=== PATIENT | male | born 1940 | race Caucasian/White ===

== ENCOUNTER 2018-04-08 14:36 | Emergency (ER) | payer OTHER ==
[~2018-04-08] VITALS: Ht 165.1 cm; Wt 68.0 kg
[2018-04-08] MEDS ORDERED: PLAVIX75 MG (14:42)
[2018-04-08] MEDS ORDERED: PROTONIX20 MG (14:42)
[2018-04-08] MEDS ORDERED: SYNTHROID50 MCG (14:43)
== END 2018-04-09 00:18 | disposition home or self-care (01) ==
LOC: ER 14:36
DX: R42 Dizziness and giddiness (principal); R55 Syncope and collapse

== ENCOUNTER 2024-04-01 14:04 | Emergency (ER) | payer OTHER ==
[~2024-04-01] VITALS: Ht 167.6 cm; Wt 79.4 kg
[~2024-04-01 14:04] MED LIST: PLAVIX75 MG; PROTONIX20 MG; SYNTHROID50 MCG
[2024-04-01] MEDS ORDERED: PIPERACILLIN/TAZOBACTAM SODIUM 3.375 GM VIAL IV SCH (14:43)
[2024-04-01 16:31] LABS: HEMATOCRIT 45.8 % (39.0-48.0); HEMOGLOBIN 15.7 g/dL (13-16.00); MEAN CELL VOLUME 88.9 fL (80.0-100.00); MEAN CORPUSCULAR HEMOGLOBIN 30.5 pg (27.00-32.0); MEAN CORPUSCULAR HGB CONC 34.3 g/dl (32.0-36.0); PLATELET COUNT 210 K/uL (150-450); RED BLOOD COUNT 5.15 M/uL (4.00-6.00); RED CELL DISTRIBUTION WIDTH 13.7 % (11.5-14.5)
[2024-04-01 16:59] LABS: INR 1.04; PARTIAL THROMBOPLASTIN TIME 24.4 SECONDS (22.0-34.0); PROTHROMBIN TIME 10.9 SECONDS (9.0-11.5)
[2024-04-01 17:05] LABS: ALBUMIN 3.6 gm/dL (3.4-5.0); BILIRUBIN TOTAL 0.7 mg/dL (0.3-1.2); CALCIUM 9.1 mg/dL (8.5-10.1); CREATININE SERUM 1.83 mg/dL (0.70-1.30); GFR 35.71; GLOBULINA 4.1 G/DL (2.4-3.5); POTASSIUM 4.32 mEq/L (3.5-5.1); TOTAL PROTEIN 7.7 gm/dL (6.4-8.2)
[2024-04-01 18:14] LABS: PH,URINE 6.5 (5.0-8.0); URINE APPEARANCE Clear; URINE BILIRRUBIN Negative (NEGATIVE); URINE BLOOD Negative; URINE COLOR Yellow; URINE GLUCOSE Negative (NEGATIVE); URINE LEUKOCYTE Negative; URINE NITRATE Negative; URINE PROTEIN 30 (NEGATIVE); URINE UROBILINOGEN 0.2 E.U./dl
[2024-04-01 18:18] LABS: URINE BACTERIA 13.8 uL (0.0-1933); URINE RBC 2.4 uL (0.0-20.8); URINE WBC 18.9 uL (0.0-23.2)
[2024-04-01] MEDS ORDERED: TETANUS & DIPHTHERIA TOX,ADULT 0.5 ML VIAL IM ONE (21:15)
== END 2024-04-01 21:16 | disposition home or self-care (01) ==
LOC: ER 14:04
PROVIDERS: General Practice
DX: S09.8XXA Other specified injuries of head, initial encounter (principal); S19.80XA Other specified injuries of unspecified part of neck, initial encounter; W18.39XA Other fall on same level, initial encounter; I10 Essential (primary) hypertension; G20.C Parkinsonism, unspecified; Y93.89 Activity, other specified; Y92.012 Bathroom of single-family (private) house as the place of occurrence of the external cause; Q84.3 Anonychia; Z98.61 Coronary angioplasty status
CPT/HCPCS: 36415; 70450; 71046; 72170; 72192; 90471; 90714; 93005; 99284; J1670; J2543